=== PATIENT | female | born 1990 | race Hispanic/Latino ===

== ENCOUNTER 2017-06-25 03:29 | Emergency (ER) | payer OTHER ==
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
[2017-06-25 07:09] VITALS: BP 122/79; PULSE 82; RESP 16; TEMP 98.3; O2SAT 98
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
== END 2017-06-25 07:04 | disposition home or self-care (01) ==
LOC: H.ER 03:29
DX: S01.81XA Laceration without foreign body of other part of head, initial encounter (principal); S02.2XXA Fracture of nasal bones, initial encounter for closed fracture; W19.XXXA Unspecified fall, initial encounter; Y92.89 Other specified places as the place of occurrence of the external cause